=== PATIENT | male | born 1955 | race Asian ===

== ENCOUNTER 2016-12-20 15:34 | Emergency (ER) | payer SELFPAY ==
[~2016-12-20] VITALS: Ht 167.6 cm; Wt 71.0 kg
[2016-12-20] MEDS ORDERED: METF500T4 PO (17:16)
[2016-12-20] MEDS ORDERED: LOSA50TA37 PO (17:16)
[2016-12-20] MEDS ORDERED: ATOR40TA28 PO (17:16)
[2016-12-20] MEDS ORDERED: ALFU10TA30 PO (17:16)
[2016-12-20 17:17] LABS: GLUCOSE,POINT OF CARE 141 MG/DL (70-110)
[2016-12-20] MEDS ORDERED: SAXA5TAB PO (17:17)
[2016-12-20 18:52] LABS: GLUCOSE,POINT OF CARE 133 MG/DL (70-110)
[2016-12-20 22:58] VITALS: BP 131/77
[2016-12-20] MEDS ORDERED: KETOROLAC TROMETHAMINE 60 MG/2 ML VIAL IM ONE (23:15)
== END 2016-12-20 23:25 | disposition home or self-care (01) ==
LOC: EMS 15:36
DX: S16.1XXA Strain of muscle, fascia and tendon at neck level, initial encounter (principal); S29.012A Strain of muscle and tendon of back wall of thorax, initial encounter; E11.9 Type 2 diabetes mellitus without complications; E78.00 Pure hypercholesterolemia, unspecified; I10 Essential (primary) hypertension; V49.9XXA Car occupant (driver) (passenger) injured in unspecified traffic accident, initial encounter; Y93.89 Activity, other specified; Y92.89 Other specified places as the place of occurrence of the external cause; Y99.8 Other external cause status
CPT/HCPCS: 72040; 73030; 82962; 96372; 99284; J1885